=== PATIENT | female | born 1945 | race Caucasian/White ===

== ENCOUNTER 2017-08-20 19:33 | Emergency (ER) | payer MEDICARE, OTHER ==
[2017-08-20 19:58] VITALS: BP 149/71; PULSE 112; RESP 14; TEMP 98.1; O2SAT 95
[2017-08-20] MEDS ORDERED: SODIUM CHLOR 0.9% 1000 ML INJ 1,000 ML IV SCH (20:18)
--- NOTE | 2017-08-20 20:25 | PD ---
HPI Chief Complaint: GI Complaint Time Seen by Provider: 20:13 Travel History International Travel<30 days: No Contact w/Intl Traveler<30days: No Traveled to known affect area: No History of Present Illness HPI 72-year-old female here for evaluation of nausea and several episodes of vomiting since 9:30 AM. She occasionally has abdominal discomfort with vomiting and has had 2 episodes of loose bowel movements. Emesis initially consisted of food, is now bilious. No hematemesis. History of cholecystectomy and hysterectomy as well as partial colectomy with reanastomosis. No fevers or chills. Triage note reports headache. The patient reports having a slight headache at onset of symptoms this morning at around 9:30 AM, however this headache resolved shortly after it started. PFSH Past Medical History Cardiovascular Problems: Yes (HTN, HIGH CHOLESTEROL) Diabetes: Yes ?: Not Social History Tobacco Use: No Allergies-Medications (Allergen,Severity, Reaction): Coded Allergies: No Known Drug Allergies (Verified Allergy, Unknown, 08/20/17) Reported Meds & Prescriptions Reported Meds & Active Scripts Active Zofran Odt (Ondansetron Odt) 4 Mg Tab 4 Mg SL Q8HR PRN Reported Zolpidem (Zolpidem Tartrate) 1.75 Mg Sub 1.75 Mg SL HS PRN Metformin (Metformin HCl) 500 Mg Tab 500 Mg PO BIDPC Atorvastatin (Atorvastatin Calcium) 10 Mg Tab 10 Mg PO HS Lipitor (Atorvastatin Calcium) 10 Mg Tab 10 Mg PO HS Review of Systems Except as stated in HPI: all other systems reviewed are Neg Physical Exam Narrative GENERAL: Well-developed, well-nourished, pleasant, no apparent distress. SKIN: Focused skin assessment warm/dry. HEAD: Atraumatic. Normocephalic. EYES: Pupils equal and round. No scleral icterus. No injection or drainage. ENT: Mucous membranes pink and moist. NECK: Trachea midline. No JVD. CARDIOVASCULAR: Regular rate and rhythm. No murmur appreciated. RESPIRATORY: No accessory muscle use. Clear to auscultation. Breath sounds equal bilaterally. GASTROINTESTINAL: Abdomen soft, nondistended. Mild diffuse tenderness without peritoneal signs. No hernias. Diminished bowel sounds. MUSCULOSKELETAL: No obvious deformities. No clubbing. No cyanosis. No edema. NEUROLOGICAL: Awake and alert. No obvious cranial nerve deficits. Motor grossly within normal limits. Normal speech. PSYCHIATRIC: Appropriate mood and affect; insight and judgment normal. Data Data Last Documented VS Vital Signs Date Time Temp Pulse Resp B/P (MAP) Pulse Ox O2 Delivery O2 Flow Rate FiO2 08/20/17 21:57 88 16 132/72 (92) 100 08/20/17 21:24 Room Air 08/20/17 19:58 98.1 Orders Orders Complete Blood Count With Diff (08/20/17 20:18) Comprehensive Metabolic Panel (08/20/17 20:18) Lipase (08/20/17 20:18) Lactic Acid (08/20/17 20:18) Prothrombin Time / Inr (Pt) (08/20/17 20:18) Act Partial Throm Time (Ptt) (08/20/17 20:18) Abdomen, Flat & Upright (08/20/17 ) Ct Abd/Pel W Iv Contrast(Rout) (08/20/17 20:18) Iv Access Insert/Monitor (08/20/17 20:18) Ecg Monitoring (08/20/17 20:18) Oximetry (08/20/17 20:18) Ondansetron Inj (Zofran Inj) (08/20/17 20:30) Sodium Chlor 0.9% 1000 Ml Inj (Ns 1000 M (08/20/17 20:18) Sodium Chloride 0.9% Flush (Ns Flush) (08/20/17 20:30) Influenzae A/B Antigen (08/20/17 20:18) Iohexol 350 Inj (Omnipaque 350 Inj) (08/20/17 21:14) Ed Discharge Order (08/20/17 21:46) Labs Laboratory Tests Test 08/20/17 20:30 White Blood Count 10.3 TH/MM3 Red Blood Count 4.78 MIL/MM3 Hemoglobin 13.9 GM/DL Hematocrit 42.3 % Mean Corpuscular Volume 88.6 FL Mean Corpuscular Hemoglobin 29.1 PG Mean Corpuscular Hemoglobin Concent 32.9 % Red Cell Distribution Width 13.0 % Platelet Count 282 TH/MM3 Mean Platelet Volume 7.6 FL Neutrophils (%) (Auto) 93.1 % Lymphocytes (%) (Auto) 4.0 % Monocytes (%) (Auto) 1.5 % Eosinophils (%) (Auto) 0.1 % Basophils (%) (Auto) 1.3 % Neutrophils # (Auto) 9.6 TH/MM3 Lymphocytes # (Auto) 0.4 TH/MM3 Monocytes # (Auto) 0.2 TH/MM3 Eosinophils # (Auto) 0.0 TH/MM3 Basophils # (Auto) 0.1 TH/MM3 CBC Comment DIFF FINAL Differential Comment Prothrombin Time 10.4 SEC Prothromb Time International Ratio 1.0 RATIO Activated Partial Thromboplast Time 21.3 SEC Blood Urea Nitrogen 25 MG/DL Creatinine 1.20 MG/DL Random Glucose 172 MG/DL Total Protein 7.9 GM/DL Albumin 3.4 GM/DL Calcium Level 9.4 MG/DL Alkaline Phosphatase 179 U/L Aspartate Amino Transf (AST/SGOT) 41 U/L Alanine Aminotransferase (ALT/SGPT) 49 U/L Total Bilirubin 0.8 MG/DL Sodium Level 136 MEQ/L Potassium Level 4.6 MEQ/L Chloride Level 103 MEQ/L Carbon Dioxide Level 24.4 MEQ/L Anion Gap 9 MEQ/L Estimat Glomerular Filtration Rate 44 ML/MIN Lactic Acid Level 1.8 mmol/L Lipase 78 U/L [facility] Medical Decision Making Medical Screen Exam Complete: Yes Emergency Medical Condition: Yes Differential Diagnosis Bowel obstruction, gastroenteritis, dehydration/metabolic abnormality Narrative Course Initial vital signs showed a heart rate of 112 which improved to 87 after a liter of normal saline IV, blood pressure 149/71, pulse ox 100% on room air, oral temp of 98.1F. CBC: WBC 10.3, hemoglobin 13.9, hematocrit 42.3, platelets 282, neutrophils 93%. CMP is remarkable for BUN 25, creatinine 1.2, GFR 44, random glucose 172. Lipase is 78. Lactic acid is 1.8. Abdominal x-ray: No dilated bowel loops seen. CT abdomen pelvis: CONCLUSION: 1. Negative CT abdomen/pelvis with contrast. Patient and the patient's significant other were made aware of all findings. She was provided a liter of normal saline IV and a dose of Zofran, and afterwards she states she felt significantly improved. She is tolerating clear liquids in the emergency department. This is likely an acute gastroenteritis. She is stable for discharge home with outpatient follow-up with a primary physician this week. She was advised on when to return to the emergency department. She verbalizes understanding and agreement with plan. Diagnosis Primary Impression: Acute gastroenteritis Referrals: Primary Care Physician 1 week Additional Instructions: Follow-up with a primary care physician when you return home to [place]. Stay hydrated with plenty of fluids. Return to the emergency department for worsening symptoms or any other concerns. Scripts Ondansetron Odt (Zofran Odt) 4 Mg Tab 4 MG SL Q8HR Y for Nausea/Vomiting, #30 TAB 0 Refills Prov: Paul Pisano MD 08/20/17 Disposition: 01 DISCHARGE HOME Condition: Stable Paul Pisano MD Aug 20, 2017 20:25
[2017-08-20] MEDS ORDERED: ONDANSETRON HCL 4 MG/2 ML VIAL IVP ONE (20:30)
[2017-08-20] MEDS ORDERED: SODIUM CHLORIDE 0.9% FLUSH 10 ML FLUSH IV FLUSH PRN (20:30)
[2017-08-20 20:42] LABS: AUTOMATED NEUTROPHIL # 9.6 TH/MM3 (1.8-7.7); BASOPHIL # 0.1 TH/MM3 (0-0.2); BASOPHIL % 1.3 % (0.0-2.0); EOSINOPHIL % 0.1 % (0.0-4.0); HEMATOCRIT 42.3 % (35.0-46.0); HEMOGLOBIN 13.9 GM/DL (11.6-15.3); LYMPHOCYTE # 0.4 TH/MM3 (1.0-4.8); MEAN CELL VOLUME 88.6 FL (80.0-100.0); MEAN CORPUSCULAR HEMOGLOBIN 29.1 PG (27.0-34.0); MEAN CORPUSCULAR HGB CONC 32.9 % (32.0-36.0); MEAN PLATELET VOLUME 7.6 FL (7.0-11.0); MONO % 1.5 % (0.0-8.0); MONOCYTE # 0.2 TH/MM3 (0-0.9); NEUT % 93.1 % (16.0-70.0); PLATELET COUNT 282 TH/MM3 (150-450); RED BLOOD COUNT 4.78 MIL/MM3 (4.00-5.30); WHITE BLOOD COUNT 10.3 TH/MM3 (4.0-11.0)
[2017-08-20] MEDS ORDERED: ATOR10TA15 PO (20:42)
[2017-08-20] MEDS ORDERED: METF500T PO (20:42)
[2017-08-20] MEDS ORDERED: ZOLP1SUB2 SL (20:42)
[2017-08-20] MEDS ORDERED: LIPI10TA PO (20:42)
[2017-08-20 20:49] VITALS: BP 153/75; PULSE 97; RESP 16; O2SAT 100
[2017-08-20 20:53] LABS: CHLORIDE 103 MEQ/L (98-107); SODIUM (NA) 136 MEQ/L (136-145)
[2017-08-20 20:56] LABS: CALCIUM 9.4 MG/DL (8.5-10.1)
[2017-08-20 20:57] LABS: ALBUMIN 3.4 GM/DL (3.4-5.0); BICARBONATE 24.4 MEQ/L (21.0-32.0); BLOOD UREA NITROGEN 25 MG/DL (7-18); GLUCOSE,RANDOM 172 MG/DL (74-106)
[2017-08-20 20:58] LABS: PROTHROMBIN TIME - PATIENT 10.4 SEC (9.8-11.6)
[2017-08-20 21:00] LABS: ALT (GPT) 49 U/L (10-53); AST (GOT) 41 U/L (15-37); GLOMERULAR FILTRATION RATE 44 ML/MIN (>89)
[2017-08-20 21:01] LABS: TOTAL BILIRUBIN ADULT 0.8 MG/DL (0.2-1.0); TOTAL PROTEIN 7.9 GM/DL (6.4-8.2)
[2017-08-20 21:03] LABS: ALKALINE PHOSPHATASE 179 U/L (45-117)
--- NOTE | 2017-08-20 21:03 | RADRPT ---
EXAM DATE/TIME: 08/20/2017 20:32 [facility] COMPARISON: No previous studies available for comparison. INDICATIONS : Nausea, vomiting, diarrhea for 12 hours MEDICAL HISTORY : None. SURGICAL HISTORY : Cholecystectomy. Colon resection. Hysterectomy. ENCOUNTER: Initial ACUITY: 1 day PAIN SCORE: 10/10 LOCATION: Bilateral abdomen FINDINGS: Diffuse osteopenia. Evidence of prior surgery a few clips in the right upper quadrant abdomen and th e pelvis. Anastomosis suture is also seen in the pelvis. No dilated loops of small or large bowel. The visualized lower lungs are clear. CONCLUSION: No dilated bowel loops seen. Shaan Ambrocio MD on August 20, 2017 at 21:01 Board Certified Radiologist. This report was verified electronically.
[2017-08-20] MEDS ORDERED: IOHEXOL 350 MG/ML 10 ML VIAL (for RAD DIAG) IVCONTRAST ONE (21:14)
[2017-08-20 21:24] VITALS: BP 125/76; PULSE 87; RESP 16; O2SAT 99
--- NOTE | 2017-08-20 21:37 | RADRPT ---
EXAM DATE/TIME: 08/20/2017 21:11 [facility] COMPARISON: No previous studies available for comparison. INDICATIONS : Nausea, vomiting, and diarrhea. IV CONTRAST: 75 cc Omnipaque 350 (iohexol) IV ORAL CONTRAST: No oral contrast ingested. RADIATION DOSE: 17.94 CTDIvol (mGy) MEDICAL HISTORY : Hypertension. SURGICAL HISTORY : Cholecystectomy. Colon resection.Hysterectomy. ENCOUNTER: Initial ACUITY: 1 day PAIN SCALE: 4/10 LOCATION: abdomen TECHNIQUE: Volumetric scanning of the abdomen and pelvis was performed. Using automated exposure control and ad justment of the mA and/or kV according to patient size, radiation dose was kept as low as reasonably achievable to obtain optimal diagnostic quality images. DICOM format image data is available electro nically for review and comparison. FINDINGS: LOWER LUNGS: The visualized lower lungs are clear. LIVER: Homogeneous density without lesion. There is no dilation of the biliary tree. Cholecystectomy. SPLEEN: Normal size without lesion. PANCREAS: Within normal limits. KIDNEYS: Normal in size and shape. There is no mass, stone or hydronephrosis. ADRENAL GLANDS: Within normal limits. VASCULAR: There is no aortic aneurysm. BOWEL/MESENTERY: The stomach, small bowel, and colon demonstrate no acute abnormality. No dilated loops of small or l arge bowel. The cecum is located in the pelvis adjacent to the urinary bladder. There is no free in traperitoneal air or fluid. ABDOMINAL WALL: Within normal limits. RETROPERITONEUM: There is no lymphadenopathy. BLADDER: No wall thickening or mass. REPRODUCTIVE: Hysterectomy. INGUINAL: There is no lymphadenopathy or hernia. MUSCULOSKELETAL: Within normal limits for patient age. CONCLUSION: 1. Negative CT abdomen/pelvis with contrast. Shaan Ambrocio MD on August 20, 2017 at 21:34 Board Certified Radiologist. This report was verified electronically.
[2017-08-20] MEDS ORDERED: ZOFR4TAB3 SL (21:45)
[2017-08-20 21:57] VITALS: BP 132/72
== END 2017-08-20 22:01 | disposition home or self-care (01) ==
LOC: PHED 19:33
DX: K52.9 Noninfective gastroenteritis and colitis, unspecified (principal); I10 Essential (primary) hypertension; E78.00 Pure hypercholesterolemia, unspecified; E11.9 Type 2 diabetes mellitus without complications; Z79.84 Long term (current) use of oral hypoglycemic drugs; Z90.49 Acquired absence of other specified parts of digestive tract
CPT/HCPCS: 74019; 74177; 80053; 83605; 83690; 85025; 85610; 85730; 87804; 96361; 96374; 99285; J2405; J7030; Q9967